=== PATIENT | female | born 1955 | race African-American/Black ===

== ENCOUNTER → 2016-12-05 | Outpatient (CLI) | payer MEDICARE, MEDICAID ==
[~2016-12-05] MED LIST: GADOBUTROL 10 MMOL/10 ML PFS ONE
== END | disposition home or self-care (01) ==
LOC: CFH 10:28
PROVIDERS: ATTEND Psychiatry & Neurology Neurology
DX: R90.82 White matter disease, unspecified (principal); C64.9 Malignant neoplasm of unspecified kidney, except renal pelvis; C18.9 Malignant neoplasm of colon, unspecified
CPT/HCPCS: 70553; 82565; A9585

== ENCOUNTER → 2017-09-08 | Outpatient (CLI) | payer MEDICARE, MEDICAID | END | disposition home or self-care (01) | LOC: WOUND 14:15 | PROVIDERS: ATTEND Family Medicine | DX: T81.31XA Disruption of external operation (surgical) wound, not elsewhere classified, initial encounter (principal); E11.8 Type 2 diabetes mellitus with unspecified complications; I10 Essential (primary) hypertension; G35 Multiple sclerosis; F41.9 Anxiety disorder, unspecified; F32.9 Major depressive disorder, single episode, unspecified; I25.10 Atherosclerotic heart disease of native coronary artery without angina pectoris; Z90.710 Acquired absence of both cervix and uterus; Z87.891 Personal history of nicotine dependence; Z85.038 Personal history of other malignant neoplasm of large intestine; Y92.89 Other specified places as the place of occurrence of the external cause; Y83.8 Other surgical procedures as the cause of abnormal reaction of the patient, or of later complication, without mention of misadventure at the time of the procedure | CPT/HCPCS: 97597; G0463; WOU0463 ==

== ENCOUNTER → 2017-09-15 | Outpatient (CLI) | payer MEDICARE, MEDICAID | END | disposition home or self-care (01) | LOC: WOUND 14:19 | PROVIDERS: ATTEND Family Medicine | DX: T81.31XD Disruption of external operation (surgical) wound, not elsewhere classified, subsequent encounter (principal); E11.8 Type 2 diabetes mellitus with unspecified complications; I10 Essential (primary) hypertension; G35 Multiple sclerosis; F41.9 Anxiety disorder, unspecified; I25.10 Atherosclerotic heart disease of native coronary artery without angina pectoris; F32.9 Major depressive disorder, single episode, unspecified; Z87.891 Personal history of nicotine dependence; Z90.710 Acquired absence of both cervix and uterus; Z85.038 Personal history of other malignant neoplasm of large intestine; Y83.8 Other surgical procedures as the cause of abnormal reaction of the patient, or of later complication, without mention of misadventure at the time of the procedure | CPT/HCPCS: 97597 ==

== ENCOUNTER → 2017-09-22 | Outpatient (CLI) | payer MEDICARE, MEDICAID | END | disposition home or self-care (01) | LOC: WOUND 14:33 | PROVIDERS: ATTEND Family Medicine | DX: T81.31XD Disruption of external operation (surgical) wound, not elsewhere classified, subsequent encounter (principal); E11.8 Type 2 diabetes mellitus with unspecified complications; I10 Essential (primary) hypertension; G35 Multiple sclerosis; F41.9 Anxiety disorder, unspecified; I25.10 Atherosclerotic heart disease of native coronary artery without angina pectoris; F32.9 Major depressive disorder, single episode, unspecified; Z87.891 Personal history of nicotine dependence; Z90.710 Acquired absence of both cervix and uterus; Z85.038 Personal history of other malignant neoplasm of large intestine; Y83.8 Other surgical procedures as the cause of abnormal reaction of the patient, or of later complication, without mention of misadventure at the time of the procedure | CPT/HCPCS: 11042 ==

== ENCOUNTER → 2017-09-28 | Outpatient (CLI) | payer MEDICARE, MEDICAID ==
[2017-09-28 15:51] LABS: CREATININE 0.96 mg/dL (0.55-1.02)
== END | disposition home or self-care (01) ==
LOC: CFH 14:36
PROVIDERS: ATTEND Psychiatry & Neurology Neurology
DX: N19 Unspecified kidney failure (principal); I10 Essential (primary) hypertension; I25.10 Atherosclerotic heart disease of native coronary artery without angina pectoris; E11.9 Type 2 diabetes mellitus without complications
CPT/HCPCS: 36415; 82565; 84520

== ENCOUNTER → 2017-10-06 | Outpatient (CLI) | payer MEDICARE, MEDICAID | END | disposition home or self-care (01) | LOC: WOUND 15:09 | PROVIDERS: ATTEND Family Medicine | DX: T81.31XD Disruption of external operation (surgical) wound, not elsewhere classified, subsequent encounter (principal); E11.8 Type 2 diabetes mellitus with unspecified complications; I10 Essential (primary) hypertension; G35 Multiple sclerosis; F41.9 Anxiety disorder, unspecified; F32.9 Major depressive disorder, single episode, unspecified; I25.10 Atherosclerotic heart disease of native coronary artery without angina pectoris; Z90.710 Acquired absence of both cervix and uterus; Z87.891 Personal history of nicotine dependence; Z85.038 Personal history of other malignant neoplasm of large intestine; Y83.8 Other surgical procedures as the cause of abnormal reaction of the patient, or of later complication, without mention of misadventure at the time of the procedure | CPT/HCPCS: 11042; 97597 ==

== ENCOUNTER → 2017-10-13 | Outpatient (CLI) | payer MEDICARE, MEDICAID | END | disposition home or self-care (01) | LOC: WOUND 15:29 | PROVIDERS: ATTEND Family Medicine | DX: T81.31XD Disruption of external operation (surgical) wound, not elsewhere classified, subsequent encounter (principal); E11.8 Type 2 diabetes mellitus with unspecified complications; I10 Essential (primary) hypertension; G35 Multiple sclerosis; F41.9 Anxiety disorder, unspecified; F32.9 Major depressive disorder, single episode, unspecified; I25.10 Atherosclerotic heart disease of native coronary artery without angina pectoris; Z87.891 Personal history of nicotine dependence; Z90.710 Acquired absence of both cervix and uterus; Z85.038 Personal history of other malignant neoplasm of large intestine; Y83.8 Other surgical procedures as the cause of abnormal reaction of the patient, or of later complication, without mention of misadventure at the time of the procedure | CPT/HCPCS: 11042 ==

== ENCOUNTER → 2017-10-20 | Outpatient (CLI) | payer MEDICARE, MEDICAID ==
[~2017-10-20] MED LIST changes: +ACET-1600 PO; +AMIT25TA PO; +AMLO5TAB2 PO; +AZEL6DRO2 EACHEYE; +CYCL5TAB PO; +DULA0.75 INJ; +DULO30CA2 PO; +ERGO500017 PO; +GABA-827 PO; +GABA300C10 PO; -GADOBUTROL 10 MMOL/10 ML PFS ONE; +HYDR25TA6 PO; +INSU100V8 SQ; +LINA5TAB PO; +LISI40TA PO; +LORA1TAB PO; +MORP15TA3 PO; +OMEP-110 PO; +OXYC15TA PO; +ROSU5TAB PO; +TERI14TA PO; +TRAZ-136 PO
== END | disposition home or self-care (01) ==
LOC: WOUND 15:19
PROVIDERS: ATTEND Family Medicine
DX: T81.31XD Disruption of external operation (surgical) wound, not elsewhere classified, subsequent encounter (principal); E11.22 Type 2 diabetes mellitus with diabetic chronic kidney disease; I12.9 Hypertensive chronic kidney disease with stage 1 through stage 4 chronic kidney disease, or unspecified chronic kidney disease; N18.9 Chronic kidney disease, unspecified; G35 Multiple sclerosis; I25.10 Atherosclerotic heart disease of native coronary artery without angina pectoris; J44.9 Chronic obstructive pulmonary disease, unspecified; I25.2 Old myocardial infarction; F41.9 Anxiety disorder, unspecified; F32.9 Major depressive disorder, single episode, unspecified; Z90.710 Acquired absence of both cervix and uterus; Z87.891 Personal history of nicotine dependence; Z85.038 Personal history of other malignant neoplasm of large intestine
CPT/HCPCS: 97597

== ENCOUNTER 2017-10-24 20:15 | Observation (INO) | payer MEDICARE, MEDICAID ==
[~2017-10-24] VITALS: Ht 170.2 cm; Wt 84.5 kg
[2017-10-24] MEDS ORDERED: ASPIRIN 81 MG TABLET CHEW PO ONE (20:30)
[2017-10-24] MEDS ORDERED: ASPIRIN 81 MG TABLET CHEW ONE (20:31)
[2017-10-24 20:48] LABS: MEAN CORPUSCULAR HEMOGLOBIN 26.7 pg (27.0-34.8); MEAN CORPUSCULAR HGB CONC 33.4 g/dL (32.4-35.8); MEAN CORPUSCULAR VOLUME 79.8 fL (80-100); MEAN PLATELET VOLUME 9.6 fL (7.4-10.4); PLATELET COUNT 204 x10^3/uL (130-400); RED BLOOD COUNT 5.59 x10^6/uL (3.82-5.3); RED CELL DISTRIBUTION WIDTH 13.6 % (9.6-15.2)
[2017-10-24] MEDS ORDERED: TRAZ-136 PO ×2 (20:50)
[2017-10-24] MEDS ORDERED: OMEP-110 PO (20:50)
[2017-10-24] MEDS ORDERED: MORP15TA3 PO (20:50)
[2017-10-24] MEDS ORDERED: LORA1TAB PO (20:50)
[2017-10-24] MEDS ORDERED: DULO30CA2 PO (20:50)
[2017-10-24] MEDS ORDERED: HYDR25TA6 PO (20:50)
[2017-10-24] MEDS ORDERED: OXYC15TA PO (20:50)
[2017-10-24] MEDS ORDERED: AZEL6DRO2 EACHEYE (20:50)
[2017-10-24] MEDS ORDERED: AMIT25TA PO (20:50)
[2017-10-24] MEDS ORDERED: GABA-827 PO (20:50)
[2017-10-24] MEDS ORDERED: ROSU5TAB PO (20:50)
[2017-10-24] MEDS ORDERED: LINA5TAB PO (20:50)
[2017-10-24] MEDS ORDERED: AMLO5TAB7 PO (20:50)
[2017-10-24] MEDS ORDERED: LISI40TA PO (20:50)
[2017-10-24] MEDS ORDERED: TERI14TA PO (20:50)
[2017-10-24 20:56] LABS: ALBUMIN 3.8 g/dL (3.4-5.0); ANION GAP 7 mmol/L (5-15); CALCIUM 9.1 mg/dL (8.5-10.1); CHLORIDE 100 mmol/L (98-107)
[2017-10-24 21:02] LABS: ALANINE AMINOTRANSFERASE 24 U/L (12-78); ALKALINE PHOSPHATASE 120 U/L (45-117); BILIRUBIN,TOTAL 0.2 mg/dL (0.2-1.0); CREATININE 1.02 mg/dL (0.55-1.02); TOTAL PROTEIN 8.1 g/dL (6.4-8.2); TROPONIN I 0.025 ng/mL (0.000-0.045)
[2017-10-24] MEDS ORDERED: INSU100V8 SQ (21:05)
[2017-10-24] MEDS ORDERED: DULA0.75 INJ (21:05)
[2017-10-24 21:10] LABS: MD YES
[2017-10-24 21:14] LABS: BASOS% (MANUAL) 1 % (0-1); LYMPHS% (MANUAL) 41 % (22-44); MONOS% (MANUAL) 1 % (2-9); SEG#(MANUAL) 5.42 x10^3/uL (1.8-6.8); SEGS% (MANUAL) 57 % (42-75)
[2017-10-24 21:15] LABS: ANISOCYTOSIS 1+; POLYCHROMASIA 1+
[2017-10-24 21:16] LABS: <PLATELET ESTIMATE> ADEQUATE; LARGE PLATELETS 1+
[2017-10-24] MEDS ORDERED: GABA300C10 PO (23:13)
[2017-10-24 23:15] VITALS: BP 145/86
[2017-10-25] MEDS ORDERED: POLYETHYLENE GLYCOL 17 GM PACKET PO PRN (00:30)
[2017-10-25] MEDS ORDERED: hydrALAzine 20 MG/ML, 1ML IVPush PRN (00:30)
[2017-10-25] MEDS ORDERED: BACLOFEN 10 MG TABLET PO PRN (00:30)
[2017-10-25] MEDS ORDERED: morphine SULFATE 10 MG/ML, 1ML IVPush PRN (00:30)
[2017-10-25] MEDS ORDERED: PROMETHAZINE 25 MG/ML, 1ML IM PRN (00:30)
[2017-10-25] MEDS ORDERED: GABAPENTIN 300 MG CAPSULE PO PRN (00:30)
[2017-10-25] MEDS ORDERED: NITROGLYCERIN 0.4 MG BOTTLE (25 TABS) SL PRN (00:30)
[2017-10-25] MEDS ORDERED: ACETAMINOPHEN 325 MG TABLET PO PRN (00:30)
[2017-10-25] MEDS ORDERED: OXYcodone IR 5MG TABLET PO PRN ×2 (00:30→01:00)
[2017-10-25] MEDS ORDERED: BISACODYL 10 MG SUPP PR PRN (00:30)
[2017-10-25] MEDS ORDERED: ONDANSETRON 2MG/ML, 2ML IVPush PRN (00:30)
[2017-10-25] MEDS ORDERED: ONDANSETRON ODT 4 MG PO PRN (00:30)
[2017-10-25] MEDS: GABAPENTIN 300 MG CAPSULE PO SCH ×2 (00:57→08:49)
[2017-10-25] MEDS ORDERED: ATORVASTATIN 10 MG TABLET PO SCH ×2 (01:00)
[2017-10-25] MEDS ORDERED: LORazepam 1MG TABLET PO PRN (01:00)
[2017-10-25] MEDS ORDERED: ALBUTEROL SULFATE 2.5 MG/3 ML NPPB PRN (01:00)
[2017-10-25] MEDS ORDERED: AMITRIPTYLINE 25 MG TABLET PO SCH (01:00)
[2017-10-25] MEDS ORDERED: TRAZODONE 50MG TABLET PO SCH (01:00)
[2017-10-25] MEDS: SODIUM CHLORIDE 0.9% 1,000 ML IV SCH ×2 (01:06→10:27)
[2017-10-25] MEDS: HEPARIN 5,000 UNITS/ML, 1ML SQ SCH ×2 (01:06→08:48)
[2017-10-25 01:35] LABS: FREE T4 (FREE THYROXINE) 1.05 ng/dL (0.76-1.46); THYROID STIMULATING HORMONE 0.542 mIU/L (0.358-3.740)
[2017-10-25 01:37] VITALS: BP 107/74
[2017-10-25 03:15] LABS: TROPONIN I 0.027 ng/mL (0.000-0.045)
[2017-10-25] MEDS ORDERED: ASPIRIN 325 MG TABLET EC PO SCH (06:00)
[2017-10-25 06:12] LABS: MICROSCOPIC NOT IND
[2017-10-25 06:16] LABS: CULTURE INDICATED? NO
[2017-10-25] MEDS: INSULIN LISPRO 100 UNITS/ML, PEN SQ-INSULIN SCH ×2 (07:00→11:00)
[2017-10-25 07:42] VITALS: BP 102/62
[2017-10-25] MEDS ORDERED: AZELASTINE HCL 0.5% EACHEYE SCH (09:00)
[2017-10-25] MEDS ORDERED: DULOXETINE 30 MG CAPSULE.DR PO SCH (09:00)
[2017-10-25] MEDS ORDERED: LISINOPRIL 20 MG TABLET PO SCH (09:00)
[2017-10-25] MEDS ORDERED: HYDROCHLOROTHIAZIDE 25 MG TABLET PO SCH (09:00)
[2017-10-25] MEDS ORDERED: AMLODIPINE 5 MG TABLET PO SCH (09:00)
[2017-10-25] MEDS ORDERED: TERIFLUNOMIDE PO SCH (09:00)
[2017-10-25] MEDS ORDERED: OMEPRAZOLE 20 MG CAPSULE.DR PO SCH (09:00)
[2017-10-25] MEDS ORDERED: LINAGLIPTIN 5 MG TAB PO SCH (09:00)
[2017-10-25] MEDS ORDERED: SENNA/DOCUSATE TABLET PO SCH (09:00)
[2017-10-25 09:08] LABS: TROPONIN I 0.022 ng/mL (0.000-0.045)
[2017-10-25] MEDS ORDERED: REGADENOSON 0.4 MG/5 ML SYRINGE ONE (09:20)
[2017-10-25] MEDS ORDERED: ERGOCALCIFEROL 50,000 UNIT CAPSULE PO SCH (12:00)
[2017-10-25] MEDS ORDERED: ACET-1600 PO (12:26)
[2017-10-25] MEDS ORDERED: CYCL5TAB PO (12:26)
[2017-10-25] MEDS ORDERED: ERGO500017 PO (12:27)
[2017-10-25 13:37] VITALS: BP 125/77
== END 2017-10-25 14:30 | disposition home or self-care (01) ==
LOC: ED 21:49 → INTOOBSV 21:50 → EDIP 21:50 → 5SO 23:07 → DCLOUNGE 10-25 14:13
PROVIDERS: ADMIT Internal Medicine; ATTEND Internal Medicine
DX: R07.89 Other chest pain (principal); I25.10 Atherosclerotic heart disease of native coronary artery without angina pectoris; I10 Essential (primary) hypertension; J44.9 Chronic obstructive pulmonary disease, unspecified; I25.2 Old myocardial infarction; Z87.891 Personal history of nicotine dependence
CPT/HCPCS: 36415; 71045; 78452; 80053; 81003; 82306; 82607; 82728; 82962; 83036; 83540; 83690; 83735; 84439; 84443; 84466; 84484; 85025; 93005; 93017; 94640; 96360; 96361; 96372; 99285; A9502; C9898; G0378; J1644; J2785; J7030; J7613; 83550; 96365

== ENCOUNTER → 2017-11-03 | Outpatient (CLI) | payer MEDICARE, MEDICAID ==
[~2017-11-03] MED LIST changes: -AMLO5TAB2 PO; +AMLO5TAB7 PO
== END | disposition home or self-care (01) ==
LOC: WOUND 15:25
PROVIDERS: ATTEND Family Medicine
DX: T81.31XD Disruption of external operation (surgical) wound, not elsewhere classified, subsequent encounter (principal); G35 Multiple sclerosis; F41.9 Anxiety disorder, unspecified; I25.10 Atherosclerotic heart disease of native coronary artery without angina pectoris; F32.9 Major depressive disorder, single episode, unspecified; I25.2 Old myocardial infarction; G89.29 Other chronic pain; K21.9 Gastro-esophageal reflux disease without esophagitis; E11.22 Type 2 diabetes mellitus with diabetic chronic kidney disease; I12.9 Hypertensive chronic kidney disease with stage 1 through stage 4 chronic kidney disease, or unspecified chronic kidney disease; N18.9 Chronic kidney disease, unspecified; Z87.891 Personal history of nicotine dependence; Z85.038 Personal history of other malignant neoplasm of large intestine; Z90.710 Acquired absence of both cervix and uterus; Y83.8 Other surgical procedures as the cause of abnormal reaction of the patient, or of later complication, without mention of misadventure at the time of the procedure
CPT/HCPCS: G0463; WOU0463

== ENCOUNTER → 2017-12-06 | Outpatient (CLI) | payer MEDICARE, MEDICAID ==
[~2017-12-06] MED LIST changes: +GADOBUTROL 10 MMOL/10 ML PFS ONE
== END | disposition home or self-care (01) ==
LOC: CFH 10-10 09:42 → RAD 08:48
PROVIDERS: ATTEND Psychiatry & Neurology Neurology
DX: G35 Multiple sclerosis (principal); M48.02 Spinal stenosis, cervical region; M47.892 Other spondylosis, cervical region
CPT/HCPCS: 70553; 72156; A9585

== ENCOUNTER → 2018-06-01 | Outpatient (CLI) | payer MEDICARE, MEDICAID ==
[~2018-06-01] MED LIST changes: +AMLO-150 PO; -AMLO5TAB7 PO; -GADOBUTROL 10 MMOL/10 ML PFS ONE; -TRAZ-136 PO; +TRAZ50TA66 PO
== END | disposition home or self-care (01) ==
LOC: CFH 10:14
PROVIDERS: ATTEND Nurse Practitioner
DX: C39.9 Malignant neoplasm of lower respiratory tract, part unspecified (principal); M48.56XA Collapsed vertebra, not elsewhere classified, lumbar region, initial encounter for fracture; M47.814 Spondylosis without myelopathy or radiculopathy, thoracic region; I25.10 Atherosclerotic heart disease of native coronary artery without angina pectoris; I70.0 Atherosclerosis of aorta; Z87.891 Personal history of nicotine dependence
CPT/HCPCS: G0297

== ENCOUNTER → 2019-07-19 | Outpatient (CLI) | payer MEDICARE, MEDICAID ==
[~2019-07-19] MED LIST changes: +MORP-29 PO; -MORP15TA3 PO; -OXYC15TA PO; +OXYC15TA3 PO
[2019-07-19 13:09] LABS: MEAN CORPUSCULAR HEMOGLOBIN 26.2 pg (27.0-34.8); MEAN CORPUSCULAR HGB CONC 32.4 g/dL (32.4-35.8); MEAN CORPUSCULAR VOLUME 80.9 fL (80-100); MEAN PLATELET VOLUME 10.5 fL (7.4-10.4); PLATELET COUNT 206 x10^3/uL (130-400); RED BLOOD COUNT 5.41 x10^6/uL (3.82-5.3); RED CELL DISTRIBUTION WIDTH 14.1 % (9.6-15.2)
[2019-07-19 13:22] LABS: BASOPHILS # (AUTO) 0.07 x10^3/uL (0-0.1); BASOPHILS % (AUTO) 1 % (0-1); EOSINOPHILS # (AUTO) 0.09 x10^3/uL (0-0.4); EOSINOPHILS % (AUTO) 1 % (1-7); LYMPHOCYTES # (AUTO) 1.74 x10^3/uL (1-3.4); LYMPHOCYTES % (AUTO) 22 % (22-44); MD SCAN; MONOCYTES % (AUTO) 9 % (2-9); NEUTROPHILS # (AUTO) 5.32 x10^3/uL (1.8-6.8); NEUTROPHILS % (AUTO) 67 % (42-75)
[2019-07-19 13:40] LABS: ALBUMIN 3.9 g/dL (3.4-5.0)
[2019-07-19 13:42] LABS: ALANINE AMINOTRANSFERASE 21 U/L (12-78); ALKALINE PHOSPHATASE 135 U/L (45-117); BILIRUBIN,TOTAL 0.3 mg/dL (0.2-1.0); TOTAL PROTEIN 8.5 g/dL (6.4-8.2)
[2019-07-19 13:48] LABS: BILIRUBIN, DIRECT < 0.1 mg/dL (0.1-0.2); BILIRUBIN,INDIRECT 0.2 mg/dL (0.0-2.0)
== END | disposition home or self-care (01) ==
LOC: CFH 10:16
PROVIDERS: ATTEND Nurse Practitioner
DX: Z12.2 Encounter for screening for malignant neoplasm of respiratory organs (principal); Z51.81 Encounter for therapeutic drug level monitoring; Z87.891 Personal history of nicotine dependence
CPT/HCPCS: 36415; 80076; 85025; G0297

== ENCOUNTER 2020-01-30 14:52 | Outpatient (CLI) | payer MEDICARE, MEDICAID ==
[~2020-01-30 14:52] MED LIST changes: -LISI40TA PO; +LISI40TA9 PO
[2020-01-30 15:47] LABS: ALANINE AMINOTRANSFERASE 22 U/L (12-78); ALBUMIN 3.9 g/dL (3.4-5.0); ANION GAP 5 mmol/L (5-15); BILIRUBIN, DIRECT 0.1 mg/dL (0.1-0.2); CALCIUM 9.2 mg/dL (8.5-10.1); CHLORIDE 103 mmol/L (98-107); CREATININE 1.29 mg/dL (0.55-1.02)
[2020-01-30 15:49] LABS: BASOPHILS % (AUTO) 1 % (0-1); EOSINOPHILS % (AUTO) 2 % (1-7); LYMPHOCYTES % (AUTO) 28 % (22-44); MEAN CORPUSCULAR HEMOGLOBIN 26.2 pg (27.0-34.8); MEAN CORPUSCULAR HGB CONC 32.5 g/dL (32.4-35.8); MEAN PLATELET VOLUME 10.3 fL (7.4-10.4); MONOCYTES % (AUTO) 10 % (2-9); NEUTROPHILS % (AUTO) 60 % (42-75); PLATELET COUNT 160 x10^3/uL (130-400); RED BLOOD COUNT 5.34 x10^6/uL (3.82-5.3); RED CELL DISTRIBUTION WIDTH 14.6 % (9.6-15.2)
[2020-01-30 15:50] LABS: ALKALINE PHOSPHATASE 153 U/L (45-117); BILIRUBIN,TOTAL 0.5 mg/dL (0.2-1.0); TOTAL PROTEIN 8.2 g/dL (6.4-8.2)
[2020-01-30 17:49] LABS: MD MORPH REVIEW ONLY
[2020-01-30 17:50] LABS: <PLATELET ESTIMATE> ADEQUATE; ANISOCYTOSIS 1+; GIANT PLATELETS 1+; LARGE PLATELETS 1+
== END 2020-01-30 23:59 | disposition home or self-care (01) ==
LOC: CFH 14:52 → LAB 23:59
PROVIDERS: ATTEND Family Medicine
DX: Z51.81 Encounter for therapeutic drug level monitoring (principal); N23 Unspecified renal colic; J84.10 Pulmonary fibrosis, unspecified; M51.36 Other intervertebral disc degeneration, lumbar region
CPT/HCPCS: 36415; 74176; 80053; 82248; 85025

== ENCOUNTER 2020-03-07 12:09 | Outpatient (CLI) | payer MEDICARE, MEDICAID ==
[~2020-03-07 12:09] MED LIST changes: +LISI40TA PO; -LISI40TA9 PO
== END 2020-03-07 23:59 | disposition home or self-care (01) ==
LOC: RAD 12:09
PROVIDERS: ATTEND Internal Medicine Nephrology
DX: K57.30 Diverticulosis of large intestine without perforation or abscess without bleeding (principal); K80.20 Calculus of gallbladder without cholecystitis without obstruction; N28.1 Cyst of kidney, acquired
CPT/HCPCS: 74181